=== PATIENT | male | born 1980 | race Caucasian/White ===

== ENCOUNTER 2022-01-31 13:25 | Outpatient (CLI) | payer OTHER | END 2022-01-31 13:26 | disposition home or self-care (01) | LOC: CSHCT 13:25 | PROVIDERS: ATTEND Neurological Surgery | DX: M54.16 Radiculopathy, lumbar region (principal); G89.4 Chronic pain syndrome; M25.512 Pain in left shoulder; M19.012 Primary osteoarthritis, left shoulder; M85.612 Other cyst of bone, left shoulder | CPT/HCPCS: 72131 ==

== ENCOUNTER 2022-08-28 01:00 | Emergency (ER) | payer OTHER | END 2022-08-28 01:15 | LOC: CSHERS 01:00 | DX: Z02.89 Encounter for other administrative examinations (principal) | CPT/HCPCS: 99283 ==

== ENCOUNTER 2022-08-30 15:22 | Emergency (ER) | payer OTHER ==
[2022-08-30] MEDS ORDERED: Lorazepam 2 MG/ML VIAL ONE (16:11)
[2022-08-30 16:18] LABS: #Basophils 0.1 10x3/uL (0.0-0.2); #Eosinphils 0.4 10x3/uL (0.0-0.5); #Monocytes 0.6 10x3/uL (0.0-1.1); #Neutrophils 4.7 10x3/uL (1.5-8.4); %Basophils 1.1 % (0.0-2.0); %Eosinophils 4.3 % (0.0-6.0); %Lymphocytes 30.1 % (18.0-47.0); %Monocytes 6.8 % (0.0-10.0); %Neutrophils 57.5 % (40.0-75.0); Mean Corpuscular HGB CONC 34.9 g/dL (32.0-36.0); Mean Corpuscular Hemoglobin 31.5 pg (27.0-33.0); Mean Corpuscular Volume 90.3 fl (81.2-95.1); Mean Platelet Volume 10.1 fl (7.4-10.4); Platelet Count 255 10x3/uL (150-450); RBC Distribution Width 13.2 % (11.5-14.5); Red Blood Cell (RBC) Count 4.76 10x6/uL (4.32-5.72); White Blood Cell (WBC) Count 8.1 10x3/uL (3.5-10.5)
[2022-08-30 16:28] LABS: Bilirubin Neg (Negative); Blood, Urine Negative (Negative); Glucose, Urine (Dipstick) Normal (Negative); Ketone, Urine Negative (Negative); Leukocyte 25 (Negative); Nitrite Negative (Negative); Protein, Urine (Dipstick) 30 mg/dl (Neg-Trace); Specific Gravity, Urine 1.015 (1.005-1.030); pH, Urine 6.5 (5.0-9.0)
[2022-08-30 16:32] LABS: Acetaminophen Less than 10.0 mcg/mL (10.0-30.0); Alcohol Less than 10 mg/dL (Less than 10); Salicylate Less than 8.0 mg/dL (15.0-30.0)
[2022-08-30 16:33] LABS: ALT (SGPT) 18 U/L (8-55); AST (SGOT) 18 U/L (5-34); Albumin 3.9 g/dL (3.5-5.0); Alkaline Phosphatase 75 U/L (40-110); Anion Gap 10 mmol/L (10-20); BUN (Urea Nitrogen) 12 mg/dL (8.9-20.6); Bilirubin, Total 0.8 mg/dL (0.2-1.2); Calc. Creatinine Clearance 0 mL/min (70-130); Calcium 9.5 mg/dL (7.8-10.44); Carbon Dioxide 24 mmol/L (22-29); Chloride 108 mmol/L (98-107); Estimated GFR 78; Globulin 2.4 g/dL (2.4-3.5); Glucose 90 mg/dL (70-105); Potassium 3.3 mmol/L (3.5-5.1); Protein, Total 6.3 g/dL (6.0-8.3); Sodium 139 mmol/L (136-145)
[2022-08-30 16:36] LABS: Amphetamine Not Detected (NotDetected); Barbiturates Screen Not Detected (NotDetected); Benzodiazepine Screen Detected (NotDetected); Cocaine Metabolite Screen Not Detected (NotDetected); Methadone Not Detected (NotDetected); Methamphetamine Not Detected (NotDetected); Opiate Screen Not Detected (NotDetected); Oxycodone Screen Not Detected (NotDetected); Phencyclidine (PCP) Not Detected (NotDetected); THC/Cannabinoid Screen Not Detected (NotDetected); Tricyclic Screen Not Detected (NotDetected)
[2022-08-30 16:57] LABS: Clarity Clear (Clear)
[2022-08-30 16:58] LABS: Bacteria/HPF None Seen HPF (None Seen); RBC/HPF 0-3 HPF (0-3); Squamous Epithelial None Seen HPF (0-3); WBC/HPF 0-3 HPF (0-3)
[2022-08-30] MEDS ORDERED: Diazepam 5 MG TAB ONE (17:40)
[2022-08-30] MEDS ORDERED: Haloperidol Lactate 5 MG/ML VIAL ONE (21:03)
[2022-08-31] MEDS ORDERED: Propranolol HCl 20 MG TAB PO SCH (09:30)
[2022-08-31] MEDS ORDERED: Loratadine 10 MG TAB PO SCH (09:30)
[2022-08-31] MEDS ORDERED: Bupropion 150 MG SR TAB PO SCH (10:00)
[2022-08-31] MEDS ORDERED: OLANZapine 5 MG TAB PO SCH (10:00)
[2022-08-31] MEDS ORDERED: Pregabalin 75 MG CAP PO SCH (10:00)
== END 2022-08-31 10:42 ==
LOC: CSHERS 15:22
DX: R45.851 Suicidal ideations (principal); K21.9 Gastro-esophageal reflux disease without esophagitis; F17.210 Nicotine dependence, cigarettes, uncomplicated
CPT/HCPCS: 36415; 80053; 80178; 80306; 80307; 81003; 81015; 84443; 85025; 93005; 96372; J1630; J2060

== ENCOUNTER 2022-09-08 18:58 | Emergency (ER) | payer OTHER ==
[2022-09-08 21:02] LABS: #Basophils 0.1 10x3/uL (0.0-0.2); #Eosinphils 0.4 10x3/uL (0.0-0.5); #Monocytes 0.4 10x3/uL (0.0-1.1); #Neutrophils 3.3 10x3/uL (1.5-8.4); %Basophils 1.1 % (0.0-2.0); %Eosinophils 6.2 % (0.0-6.0); %Lymphocytes 35.5 % (18.0-47.0); %Monocytes 6.6 % (0.0-10.0); %Neutrophils 50.3 % (40.0-75.0); Hemoglobin 14.9 g/dL (13.5-17.5); Mean Corpuscular HGB CONC 34.7 g/dL (32.0-36.0); Mean Corpuscular Volume 92.1 fl (81.2-95.1); Mean Platelet Volume 9.5 fl (7.4-10.4); Platelet Count 235 10x3/uL (150-450); RBC Distribution Width 13.1 % (11.5-14.5); Red Blood Cell (RBC) Count 4.66 10x6/uL (4.32-5.72); White Blood Cell (WBC) Count 6.5 10x3/uL (3.5-10.5)
[2022-09-08 21:20] LABS: Acetaminophen Less than 10.0 mcg/mL (10.0-30.0); Alcohol Less than 10 mg/dL (Less than 10); Anion Gap 8 mmol/L (10-20); BUN (Urea Nitrogen) 8 mg/dL (8.9-20.6); Calc. Creatinine Clearance 0 mL/min (70-130); Calcium 9.5 mg/dL (7.8-10.44); Carbon Dioxide 24 mmol/L (22-29); Chloride 107 mmol/L (98-107); Estimated GFR 97; Glucose 107 mg/dL (70-105); Magnesium 2.2 mg/dL (1.6-2.6); Potassium 3.4 mmol/L (3.5-5.1); Salicylate Less than 8.0 mg/dL (15.0-30.0); Sodium 136 mmol/L (136-145)
[2022-09-08 22:15] LABS: Amphetamine Not Detected (NotDetected); Barbiturates Screen Not Detected (NotDetected); Benzodiazepine Screen Detected (NotDetected); Cocaine Metabolite Screen Not Detected (NotDetected); Methadone Not Detected (NotDetected); Methamphetamine Not Detected (NotDetected); Opiate Screen Not Detected (NotDetected); Oxycodone Screen Not Detected (NotDetected); Phencyclidine (PCP) Not Detected (NotDetected); THC/Cannabinoid Screen Not Detected (NotDetected); Tricyclic Screen Not Detected (NotDetected)
[2022-09-09 01:08] LABS: SARS-CoV-2 NAA Rapid Test Not Detected (NotDetected)
[2022-09-09] MEDS ORDERED: Loratadine 10 MG TAB PO SCH ×2 (08:00)
[2022-09-09] MEDS ORDERED: Lithium Carbonate 150 MG CAP PO SCH ×2 (08:15→19:30)
[2022-09-09] MEDS ORDERED: Bupropion 150 MG XL TAB PO SCH (08:15)
[2022-09-09] MEDS ORDERED: clonazePAM 1 MG TAB ONE (08:49)
[2022-09-09] MEDS ORDERED: Pregabalin 50 MG CAP ONE ×2 (08:51→19:50)
[2022-09-09] MEDS ORDERED: Zolpidem Tartrate 5 MG TAB ONE (20:57)
[2022-09-10] MEDS ORDERED: clonazePAM 0.5 MG TAB ONE (10:10)
[2022-09-10] MEDS ORDERED: Pregabalin 50 MG CAP ONE ×3 (10:11→21:32)
[2022-09-10] MEDS ORDERED: Bupropion 150 MG XL TAB PO SCH (10:30)
[2022-09-10] MEDS ORDERED: Loratadine 10 MG TAB PO SCH (10:30)
[2022-09-10] MEDS ORDERED: Lithium Carbonate 150 MG CAP PO SCH ×2 (10:30→21:30)
[2022-09-10] MEDS ORDERED: Zolpidem Tartrate 5 MG TAB ONE (21:17)
== END 2022-09-10 22:42 ==
LOC: CSHERS 18:58
DX: R45.851 Suicidal ideations (principal); F17.210 Nicotine dependence, cigarettes, uncomplicated; K21.9 Gastro-esophageal reflux disease without esophagitis; Z79.899 Other long term (current) drug therapy; Z20.822 Contact with and (suspected) exposure to COVID-19
CPT/HCPCS: 36415; 71045; 80048; 80143; 80178; 80179; 80306; 80307; 83735; 84443; 84484; 85025; 93005; U0002